=== PATIENT | male | born 1960 | race African-American/Black ===

== ENCOUNTER 2017-04-10 13:59 | Inpatient (IN) | payer OTHER ==
[~2017-04-10] VITALS: Ht 177.8 cm; Wt 57.6 kg
[2017-04-10 14:24] VITALS: BP 126/74
[2017-04-10] MEDS ORDERED: ACETAMINOPHEN EXTRA STRENGTH 500 MG TAB PO ONE (14:30)
[2017-04-10] MEDS ORDERED: ALBUTEROL SULFATE/IPRATROPIU 3 ML SOL IH ONE (14:30)
--- NOTE | 2017-04-10 14:45 | NUR ---
PT CAME IN C/O COUGH, NAUSEA, CONGESTION, SOB, X1 WEEK. STATES HOME REMEDIES AND REST NOT ELEVIATING SYMPTOMS. COUGHING UP YELLOOW PHLEGM. LUNG SOUNDS BILAT DIMINISHED BASES WITH CRACKLES IN RIGHT LOWER LOBE. OXYGEN SUPPLIED. HOB RAISED. ME AWARE. CONTINUE TO MONITOR.
[2017-04-10] MEDS ORDERED: NACL 0.9% 2,500 ML IV ONE (15:40)
--- NOTE | 2017-04-10 16:00 | NUR ---
Pt laying supine in gurney. Patient denies any pain at this time. Pt positioned to comfort. NAD. Will continue to monitor.
[2017-04-10] MEDS ORDERED: LEVOFLOXACIN 750 MG/D5W PREMIX 150 ML IV ONE (17:45)
--- NOTE | 2017-04-10 18:00 | NUR ---
pt resting with eyes closed in rcool. pt denies any pain at this time. nad. vss. will continue to monitor.
[2017-04-10 19:07] LABS: PROTHROMBIN TIME 10.2 secs (10.8-13.4)
[2017-04-10 19:27] LABS: CREATINE KINASE MB 2.4 ng/mL (0-3.6)
--- NOTE | 2017-04-10 19:27 | NUR ---
Pt report given to Nickie SHANE. Transfer of care at this time.
[2017-04-10 19:28] LABS: ANION GAP 11.2 (8-16); CARBON DIOXIDE 30.3 mmol/L (21-32); POTASSIUM 3.5 mmol/L (3.5-5.1)
[2017-04-10 19:29] LABS: CREATININE 0.9 mg/dL (0.7-1.3); TOTAL BILIRUBIN 1.2 mg/dL (0.0-1.0)
[2017-04-10 19:31] LABS: WHITE BLOOD COUNT (AUTO) 12.6 K/uL (4.8-10.8)
[2017-04-10 19:32] LABS: HEMOGLOBIN 11.4 g/dL (12.0-18.0); MEAN CORPUSCULAR VOLUME 93 fL (80-94); RED BLOOD CELL COUNT(AUTO) 3.68 MIL/uL (4.20-6.10)
[2017-04-10 19:33] LABS: APPEARANCE,URINE CLEAR (CLEAR); BILIRUBIN,URINE 1+ (NEGATIVE); BLOOD, URINE 1+ (NEGATIVE); COLOR,URINE ORANGE (YELLOW); LEUKOCYTE ESTERASE ,URINE NEGATIVE (NEGATIVE); NITRITE, URINE NEGATIVE (NEGATIVE); UGLUCOSE NEGATIVE (NEGATIVE)
[2017-04-10 19:33] LABS: MEAN CORPUSCULAR HEMOGLOBIN 31 pg (27-31); MEAN CORPUSCULAR HGB CONC 34 g/dL (33-37); PLATELET COUNT (AUTO) 245 K/uL (140-450); RED CELL DISTRIBUTION WIDTH 13.2 % (11.6-13.7)
--- NOTE | 2017-04-10 20:00 | NUR ---
Patient appears to be resting comfortably in bed. Vital Signs within normal limits. Respirations even and unlabored.
--- NOTE | 2017-04-10 20:30 | NUR ---
CONTINUOUS ON 3LPMNC, SATS 94-96%. ER MD LUNA AWARE
[2017-04-10] MEDS ORDERED: ACETAMINOPHEN 325 MG TAB PO PRN (20:55)
[2017-04-10] MEDS ORDERED: ALBUTEROL 0.083% 2.5 MG/3 ML NEBU IH PRN (20:55)
[2017-04-10] MEDS ORDERED: LEVOFLOXACIN 750 MG/D5W PREMIX 150 ML IV SCH (20:55)
[2017-04-10] MEDS ORDERED: ONDANSETRON 4 MG/2 ML VIAL IVP PRN (20:55)
[2017-04-10] MEDS ORDERED: guaiFENesin 20 MG/ML UDC PO PRN (21:00)
--- NOTE | 2017-04-10 21:20 | NUR ---
Patient will be admitted to [facility]. Admited to TELE. Will go to room 106A. Belongings list completed. BEDSIDE Report to JOHN SHANE. IV SL AND PATENT
[2017-04-10 21:25] VITALS: BP 105/56
--- NOTE | 2017-04-10 21:25 | NUR ---
RECEIVED PATIENT FROM ER. PATIENT AMBULATORY. PATIENT A&OX4. PATIENT DENIES PAIN. PATIENT DENIES CHEST PAIN. IV SITE PATENT AND INTACT. PATIENT ON 2L O2 VIA NASAL CANNULA. TELE BOX IN PLACE. NO SIGNS OR SYMPTOMS OF ACUTE DISTRESS NOTED. CALL LIGHT WITHIN REACH. WILL CONTINUE TO MONITOR.
[2017-04-10] MEDS: NACL 0.9% 1,000 ML IV SCH (22:11)
--- NOTE | 2017-04-10 23:48 | NUR ---
PATIENT STATES SHORTNESS OF BREATH. O2 91. RT TO SEE PATIENT. PATIENT DENIES CHEST PAIN. SAFETY MEASURES ENSURED WILL CONTINUE TO MONITOR.
[2017-04-11] MEDS: ALBUTEROL 0.083% 2.5 MG/3 ML NEBU IH SCH ×3 (00:17→14:05)
--- NOTE | 2017-04-11 01:33 | NUR ---
PATIENT RESTING IN BED. PATIENT DENIES PAIN. NO SIGNS OR SYMPTOMS OF ACUTE DISTRESS NOTED. CALL LIGHT WITHIN REACH. WILL CONTINUE TO MONITOR.
[2017-04-11 03:09] LABS: RBC,URINE 0-5 (RARE) /HPF (0-5); WBC,URINE 0-5 (RARE) /HPF (0-5)
[2017-04-11 04:00] VITALS: BP 108/62
--- NOTE | 2017-04-11 05:33 | NUR ---
PATIENT AWAKE IN BED WATCHING TV. PATIENT DENIES PAIN. NO SIGNS OR SYMPTOMS OF ACUTE DISTRESS NOTED. CALL LIGHT WITHIN REACH. WILL CONTINUE TO MONITOR.
[2017-04-11] MEDS: NACL 0.9% 1,000 ML IV SCH (06:46)
--- NOTE | 2017-04-11 07:20 | NUR ---
RECEIVE PT IN BED, AWAKE. ALERT ORIENTEDX4. NO SOB NOTED. ON O2 AT 2LPM NC. DENIES ANY PAIN OR DISCOMFORT AT THIS TIME. PT AMBULATORY WITH ASSIST. SAFETY PRECAUTION IN PLACE. CALL LIGHT WITHIN REACH.
--- NOTE | 2017-04-11 07:27 | NUR ---
ENDORSED PLAN OF CARE TO AM RN. PATIENT IN STABLE CONDITION.
[2017-04-11 08:00] VITALS: BP 110/53
[2017-04-11] MEDS ORDERED: ENOXAPARIN 40 MG/0.4 ML SYR SUBQ SCH (09:00)
[2017-04-11 10:38] LABS: BASOPHILS # (AUTO) 0.1 K/uL (0.00-0.22); BASOPHILS % (AUTO) 0.5 % (0.0-2.0); EOSINOPHILS # (AUTO) 0.1 K/uL (0-0.4); EOSINOPHILS % (AUTO) 0.6 % (0.0-4.0); HEMATOCRIT 29.9 % (36-52); HEMOGLOBIN 10.1 g/dL (12.0-18.0); LYMPHOCYTES # (AUTO) 0.9 K/uL (2.0-11.5); LYMPHOCYTES % (AUTO) 8.8 % (20.5-51.1); MEAN CORPUSCULAR HEMOGLOBIN 31 pg (27-31); MEAN CORPUSCULAR HGB CONC 34 g/dL (33-37); MEAN CORPUSCULAR VOLUME 92 fL (80-94); MONOCYTES # (AUTO) 0.8 K/uL (0.8-1.0); MONOCYTES % (AUTO) 8.1 % (1.7-9.3); NEUTROPHILS # (AUTO) 8.4 K/uL (1.8-7.7); PLATELET COUNT (AUTO) 243 K/uL (140-450); RED BLOOD CELL COUNT(AUTO) 3.23 MIL/uL (4.20-6.10); RED CELL DISTRIBUTION WIDTH 12.4 % (11.6-13.7); WHITE BLOOD COUNT (AUTO) 10.3 K/uL (4.8-10.8)
[2017-04-11 11:59] VITALS: BP 119/75
[2017-04-11] MEDS ORDERED: predniSONE 20 MG TAB PO SCH (12:00)
[2017-04-11 14:04] LABS: ANION GAP 13.3 (8-16); CARBON DIOXIDE 25.2 mmol/L (21-32); CREATININE 0.9 mg/dL (0.7-1.3); POTASSIUM 3.5 mmol/L (3.5-5.1)
[2017-04-11 14:11] LABS: ALBUMIN 2.5 g/dL (3.4-5.0)
--- NOTE | 2017-04-11 14:27 | NUR ---
04/11/2017 RD INITIAL ASSESSMENT COMPLETED PLEASE REFER TO NUTRITION ASSESSMENT UNDER CARE ACTIVITY FOR ESTIMATED NUTRITIONAL NEEDS. 1. CONTINUE CURRENT NUTRITION SUPPORT, PT WILL RECEIVE HEALTH SHAKE TID FOR ADDITIONAL KCALS/PRO. 2. RD TO FOLLOW-UP IN 2-3 DAYS PATIENT IS HIGH RISK. AARON LAU RD
[2017-04-11] MEDS ORDERED: ALBU0.0912 IH (15:46)
[2017-04-11] MEDS ORDERED: PRED20TA5 PO (15:46)
[2017-04-11] MEDS ORDERED: LEVO750T2 PO (15:49)
[2017-04-11 16:02] VITALS: BP 137/64
--- NOTE | 2017-04-11 16:13 | NUR ---
PT SATING AT 95-96% ON ROOM AIR. NO SOB NOTED. DENIES PAIN OR DISCOMFORT AT THIS TIME.
--- NOTE | 2017-04-11 16:20 | NUR ---
DISCHARGE INSTRUCTIONS AND PATIENT TEACHINGS GIVEN AND EXPLAINED TO PT. PT VERBALIZED UNDERSTANDING AND SIGNED DISCHARGE PAPERS. ALIA WITH PT. PROVIDED WITH PRESCRIPTION. EXPLAINED TO PT PRESCRIBED MEDICATIONS TO PT. VERBALIZED UNDERSTANDING.NAME [place] REMOVED. IV CANNULA REMOVED INTACT. TELE MONITOR REMOVED. NO SOB NOTED. DENIES ANY PAIN OR DISCOMFORT AT THIS TIME. WHEELED PT OUT GOING TO THE HOSPITAL PARKING LOT TO THEIR CAR. PT ON STABLE CONDITION.
--- NOTE | 2017-04-11 16:35 | NUR ---
INITIAL REVIEW FAXED TO [facility] [phone] PHONE MARVIN [phone]
[2017-04-12] MEDS ORDERED: predniSONE 20 MG TAB PO SCH (09:00)
== END 2017-04-11 16:20 | disposition home or self-care (01) | DRG 189 ==
LOC: MED 13:59 → MTU 20:19
PROVIDERS: ADMIT Hospitalist; ATTEND Hospitalist
DX: J96.00 Acute respiratory failure, unspecified whether with hypoxia or hypercapnia (principal); R65.11 Systemic inflammatory response syndrome (SIRS) of non-infectious origin with acute organ dysfunction; J44.9 Chronic obstructive pulmonary disease, unspecified; F17.210 Nicotine dependence, cigarettes, uncomplicated; Z91.19 Patient's noncompliance with other medical treatment and regimen
CPT/HCPCS: 36415; 71045; 80053; 81001; 82550; 82553; 83605; 84484; 85025; 85610; 87040; 87804; 93005; 94640; 96361; 96365; 99291; J1650; J1956; J7030; J7060; J7512; J7613; J7620; Q0092